=== PATIENT | male | born 1985 ===

== ENCOUNTER 2021-11-14 22:38 | Emergency (ER) | payer SELFPAY ==
[2021-11-15] MEDS ORDERED: KETOROLAC 30 MG/1 ML INJ IV ONE (01:21)
[2021-11-15] MEDS ORDERED: BUTALB/ACETAMINOPHEN/CAFFEINE TAB PO ONE (01:21)
--- NOTE | 2021-11-15 01:27 | Emergency Department Report ---
ED General Adult HPI - General Chief complaint: Chest Pain Stated complaint: CHEST PAIN Source: patient Mode of arrival: Ambulatory Limitations: No Limitations - History of Present Illness Initial comments: Patient is a 36-year-old male with no past medical history who presents to the ED with complaint of acute onset persistent severe headache, nausea and vomiting, diffuse chest pain and lightheadedness for the last 2 weeks. Patient states that he was initially evaluated at another hospital where he was discharged home with a diagnosis of dizziness and given a prescription of meclizine 25 mg to be taken 3 times a day as needed for dizziness. Patient states that in the last 3 days, the headache has worsened such that he is unable to keep anything down because of intractable nausea and vomiting and severe headache. Patient denies change in vision, neck pain, fever, chills, cough, sore throat, traumatic injury, back pain, abdominal pain, diarrhea, dysuria, urinary frequency and urgency, loss of consciousness, dizziness or syncope and palpitations. MD Complaint: Left-sided chest pain, severe headache, nausea and vomiting -: Sudden, week(s) (2) Location: head, chest Radiation: non-radiation Severity scale (0 -10): 8 Quality: aching, sharp Consistency: constant Improves with: none Worsens with: none Associated Symptoms: denies other symptoms, chest pain, cough, headaches, loss of appetite, malaise, nausea/vomiting. denies: confusion, diaphoresis, fever/chills, rash, seizure, shortness of breath, syncope, weakness Treatments Prior to Arrival: none - Related Data Previous Rx's Medication Instructions Recorded Last Taken Type Butalb/Acetamin/Caff 50-325-40 1 - 2 tab PO Q6HR PRN #15 tab 11/15/21 Unknown Rx [Fioricet 50-325-40] Ketorolac [Toradol] 10 mg PO Q8H PRN #20 tab 11/15/21 Unknown Rx Promethazine [Phenergan] 25 mg PO Q6HR PRN #24 tab 11/15/21 Unknown Rx Allergies Allergy/AdvReac Type Severity Reaction Status Date / Time No Known Allergies Allergy Verified 11/14/21 22:51 ED Review of Systems ROS: Stated complaint: CHEST PAIN Other details as noted in HPI Constitutional: malaise. denies: chills, fever, weakness Eyes: denies: eye pain, eye discharge, vision change ENT: denies: ear pain, throat pain Respiratory: cough, shortness of breath. denies: wheezing Cardiovascular: chest pain (chest pain). denies: palpitations, edema, syncope Endocrine: no symptoms reported. denies: excessive sweating, flushing, intolerance to cold, intolerance to heat Gastrointestinal: nausea, vomiting. denies: abdominal pain, diarrhea Genitourinary: denies: urgency, dysuria Musculoskeletal: denies: back pain, joint swelling, arthralgia Skin: denies: rash, lesions Neurological: headache. denies: weakness, paresthesias Psychiatric: denies: anxiety, depression Hematological/Lymphatic: denies: easy bleeding, easy bruising ED Past Medical Hx - Past Medical History Previous Medical History?: No - Surgical History Past Surgical History?: No - Medications Home Medications: Home Medications Medication Instructions Recorded Confirmed Last Taken Type Butalb/Acetamin/Caff 50-325-40 1 - 2 tab PO Q6HR PRN #15 tab 11/15/21 Unknown Rx [Fioricet 50-325-40] Ketorolac [Toradol] 10 mg PO Q8H PRN #20 tab 11/15/21 Unknown Rx Promethazine [Phenergan] 25 mg PO Q6HR PRN #24 tab 11/15/21 Unknown Rx ED Physical Exam - General Limitations: No Limitations General appearance: alert, in no apparent distress - Head Head exam: Present: atraumatic, normocephalic, normal inspection - Eye Eye exam: Present: normal appearance, PERRL, EOMI Pupils: Present: normal accommodation - ENT ENT exam: Present: normal exam, normal orophraynx, mucous membranes moist, TM's normal bilaterally, normal external ear exam - Neck Neck exam: Present: normal inspection, full ROM. Absent: tenderness - Respiratory Respiratory exam: Present: normal lung sounds bilaterally. Absent: respiratory distress, wheezes, stridor, chest wall tenderness, accessory muscle use, decreased breath sounds, prolonged expiratory - Cardiovascular Cardiovascular Exam: Present: regular rate, normal rhythm, normal heart sounds. Absent: systolic murmur, diastolic murmur, rubs, gallop - GI/Abdominal GI/Abdominal exam: Present: soft, normal bowel sounds. Absent: tenderness, guarding, rigid, hyperactive bowel sounds, hypoactive bowel sounds, organomegaly - Extremities Exam Extremities exam: Present: normal inspection, full ROM, normal capillary refill. Absent: tenderness - Back Exam Back exam: Present: normal inspection, full ROM. Absent: tenderness, CVA tenderness (R), CVA tenderness (L), muscle spasm, paraspinal tenderness, vertebral tenderness - Neurological Exam Neurological exam: Present: alert, oriented X3, CN II-XII intact, normal gait, reflexes normal - Psychiatric Psychiatric exam: Present: normal affect, normal mood - Skin Skin exam: Present: warm, dry, intact, normal color. Absent: rash ED Course Vital Signs 11/14/21 11/15/21 11/15/21 22:49 01:36 04:45 Temperature 98.5 F Pulse Rate 94 H 70 Respiratory 17 14 20 Rate Blood Pressure 142/104 Blood Pressure 144/90 [Right] O2 Sat by Pulse 98 98 Oximetry ED Medical Decision Making - Lab Data Result diagrams: 11/15/21 02:17 11/15/21 02:17 - Radiology Data Radiology results: report reviewed, image reviewed [address] [address] XRay Report Signed Patient: MATT BUSTILLOS MR#: [id number] : 1985 Acct:[id number] Age/Sex: 36 / M ADM Date: 11/14/21 Loc: ED Attending Dr: Ordering Physician: LESLIE JASSO Date of Service: 11/15/21 Procedure(s): XR chest 1V ap Accession Number(s): [id number] cc: LESLIE JASSO Fluoro Time In Minutes: CHEST 1 VIEW 11/15/2021 1:08 AM INDICATION / CLINICAL INFORMATION: chest pain. Headache and dizziness. COMPARISON: None available. FINDINGS: SUPPORT DEVICES: None. HEART / MEDIASTINUM: No significant abnormality. LUNGS / PLEURA: No significant pulmonary or pleural abnormality. No pneumothorax. ADDITIONAL FINDINGS: No significant additional findings. IMPRESSION: 1. No acute findings. Signer Name: Aydin Liu MD Signed: 11/15/2021 2:12 AM Workstation Name: [id number] Transcribed By: DT Dictated By: Nigel Liu MD Electronically Authenticated By: Nigel Liu MD Signed Date/Time: 11/15/21211 DD/ 1 TD/TT: [facility] [address] [place] [address] Cat Scan Report Signed Patient: MATT BUSTILLOS MR#: [id number] : 1985 Acct:[id number] Age/Sex: 36 / M ADM Date: 11/14/21 Loc: ED Attending Dr: Ordering Physician: LESLIE JASSO Date of Service: 11/15/21 Procedure(s): CT head/brain wo con Accession Number(s): [id number] cc: LESLIE JASSO CT HEAD WITHOUT CONTRAST INDICATION / CLINICAL INFORMATION: Headache, dizziness. TECHNIQUE: All CT scans at this location are performed using CT dose reduction for ALARA by means of automated exposure control. COMPARISON: None available. FINDINGS: HEMORRHAGE: None. EXTRA-AXIAL SPACES: Normal in size and morphology for the patient's age. VENTRICULAR SYSTEM: Normal in size and morphology for the patient's age. CEREBRAL PARENCHYMA: No significant abnormality. No acute territorial infarct. MIDLINE SHIFT / HERNIATION: None. CEREBELLUM / BRAINSTEM: No significant abnormality. ORBITS: Normal as visualized. SOFT TISSUES: No significant abnormality. SKULL: No significant abnormality. PARANASAL SINUSES / MASTOID AIR CELLS: Normal as visualized. ADDITIONAL FINDINGS: None. IMPRESSION: 1. No acute intracranial abnormality. Signer Name: Aydin Liu MD Signed: 11/15/2021 2:01 AM Workstation Name: [id number] Transcribed By: HUI Dictated By: Nigel Liu MD Electronically Authenticated By: Nigel Liu MD Signed Date/Time: 11/15/21200 DD/ 0159 TD/TT: - Medical Decision Making This is a 36-year-old male with no past medical history who presents to the ED with complaint of acute onset persistent severe headache, nausea and vomiting, diffuse chest pain and lightheadedness for the last 2 weeks. Patient states that he was initially evaluated at another hospital where he was discharged home with a diagnosis of dizziness and given a prescription of me clizine 25 mg to be taken 3 times a day as needed for dizziness. Patient states that in the last 3 days, the headache has worsened such that he is unable to keep anything down because of intractable nausea and vomiting and severe headache. In the ED, patient is alert and oriented x3 and is not in any distress. Lab test results were reviewed and are all nonactionable. The head CT scan without contrast showed no acute intracranial abnormalities hemorrhage. Chest x-ray showed no acute cardiopulmonary abnormalities or pneumonitis. Patient was treated in the ED for headache and also given antiemetics. On reevaluation, patient's headache resolved nausea and vomiting also resolved and patient was able to keep oral fluids in the ED. Patient symptoms are likely due to her migraine headache which necessitates the patient to have nausea and vomiting since it has not been well treated prior to patient's arrival in the ED. Chest x-ray is from anxiety from patient's pain. Patient has no cardiac risk factors and his heart score is 0. Patient was discharged home on medications and advised to follow-up with his primary care physician in 5 to 7 days for reevaluation. - Differential Diagnosis Migraine headache; pneumonia; dehydration; ACS; bronchitis; sinusitis Critical care attestation.: If time is entered above; I have spent that time in minutes in the direct care of this critically ill patient, excluding procedure time. ED Disposition Clinical Impression: Nausea and vomiting in adult patient, Acute nonspecific chest pain with low risk of coronary artery disease Migraine headache without aura Qualifiers: Status migrainosus presence: without status migrainosus Intractability: not intractable Qualified Code(s): G43.009 - Migraine without aura, not intractable, without status migrainosus Disposition: HOME / SELF CARE / HOMELESS Is pt being admited?: No Does the pt Need Aspirin: No Condition: Stable Instructions: Chest Wall Pain, [id number], Nausea and Vomiting, Adult, [id number], Recurrent Migraine Headache, [id number], Nonspecific Chest Pain, Adult, [id number], Chest Pain (ED) Additional Instructions: Todos los resultados de las pruebas de laboratorio fueron revisados ??y no son procesables. La radiografa de trax no mostr anomalas cardiopulmonares agudas ni neumonitis. La tomografa computarizada de la beth sin contraste no mostr anomalas intracraneales agudas ni hemorragia. Es probable que cholo sntomas se deban a guillermo migraa que provoca nuseas y vmitos. La gravedad de las nuseas, los vmitos y el dolor de beth empeoran la ansiedad y provocan dolor en el pecho. Por lo tanto, tome los medicamentos segn lo recomendado, antwon muchos lquidos y christa un seguimiento con anton mdico de atencin primaria en 5 a 7 villalba para guillermo reevaluacin. Regrese al servicio de urgencias inmediatamente si los sntomas empeoran. Prescriptions: Butalb/Acetamin/Caff 50-325-40 [Fioricet 50-325-40] 1 - 2 tab PO Q6HR PRN #15 tab PRN Reason: Headache Promethazine [Phenergan] 25 mg PO Q6HR PRN #24 tab PRN Reason: Nausea Ketorolac [Toradol] 10 mg PO Q8H PRN #20 tab PRN Reason: Pain Referrals: HENRRY THOMSON MD [Staff Physician] - 3-5 Days Time of Disposition: 04:01 Print Language: CONGOLESE
--- NOTE | 2021-11-15 02:06 | Cat Scan Report ---
CT HEAD WITHOUT CONTRAST INDICATION / CLINICAL INFORMATION: Headache, dizziness. TECHNIQUE: All CT scans at this location are performed using CT dose reduction for ALARA by means of automated exposure control. COMPARISON: None available. FINDINGS: HEMORRHAGE: None. EXTRA-AXIAL SPACES: Normal in size and morphology for the patient's age. VENTRICULAR SYSTEM: Normal in size and morphology for the patient's age. CEREBRAL PARENCHYMA: No significant abnormality. No acute territorial infarct. MIDLINE SHIFT / HERNIATION: None. CEREBELLUM / BRAINSTEM: No significant abnormality. ORBITS: Normal as visualized. SOFT TISSUES: No significant abnormality. SKULL: No significant abnormality. PARANASAL SINUSES / MASTOID AIR CELLS: Normal as visualized. ADDITIONAL FINDINGS: None. IMPRESSION: 1. No acute intracranial abnormality. Signer Name: Aydin Liu MD Signed: 11/15/2021 2:01 AM Workstation Name: [id number]
--- NOTE | 2021-11-15 02:17 | XRay Report ---
CHEST 1 VIEW 11/15/2021 1:08 AM INDICATION / CLINICAL INFORMATION: chest pain. Headache and dizziness. COMPARISON: None available. FINDINGS: SUPPORT DEVICES: None. HEART / MEDIASTINUM: No significant abnormality. LUNGS / PLEURA: No significant pulmonary or pleural abnormality. No pneumothorax. ADDITIONAL FINDINGS: No significant additional findings. IMPRESSION: 1. No acute findings. Signer Name: Aydin Liu MD Signed: 11/15/2021 2:12 AM Workstation Name: [id number]
[2021-11-15 02:29] LABS: Basophils # (Auto) 0.1 K/mm3 (0.0-0.1); Basophils % (Auto) 0.7 % (0.0-1.8); Eosinophils # (Auto) 0.2 K/mm3 (0.0-0.4); Eosinophils % (Auto) 2.6 % (0.0-4.3); Hematocrit 45.9 % (35.5-45.6); Hemoglobin 15.4 gm/dl (11.8-15.2); Lymphocytes # (Auto) 3.3 K/mm3 (1.2-5.4); Lymphocytes % (Auto) 35.4 % (13.4-35.0); Mean Corpuscular HGB Conc 34 % (32-34); Mean Corpuscular Volume 88 fl (84-94); Monocytes # (Auto) 0.7 K/mm3 (0.0-0.8); Monocytes % (Auto) 7.9 % (0.0-7.3); Platelet Count 420 K/mm3 (140-440); Red Cell Distribution Width 13.5 % (13.2-15.2)
[2021-11-15 03:01] LABS: Alanine Aminotransferase 32 units/L (7-56); BUN/Creatinine Ratio 19; Blood Urea Nitrogen 17 mg/dL (9-20); Calcium 9.3 mg/dL (8.4-10.2); Hemolysis Index 5
[2021-11-15 04:47] VITALS: BP 144/90
== END 2021-11-15 04:45 | disposition home or self-care (01) ==
LOC: ED 22:38
DX: R11.2 Nausea with vomiting, unspecified (principal); R07.9 Chest pain, unspecified; G43.909 Migraine, unspecified, not intractable, without status migrainosus
CPT/HCPCS: 36415; 70450; 71045; 80053; 84484; 85025; 93005; 96374; 99284; J1885